=== PATIENT | male | born 1940 | race Caucasian/White ===

== ENCOUNTER → 2024-10-23 10:29 | Outpatient (REF) | payer MEDICARE, BC, SELFPAY ==
[2024-10-23 11:25] LABS: Hematocrit 41.1 % (39.0-52.0); Hemoglobin 13.9 g/dL (13.0-18.0); Mean Corp Hgb Conc. 33.8 g/dL (33.0-37.0); Mean Corpuscular Hgb 36.2 pg (27.0-31.0); Platelet Count 95 10^3/uL (130-400); Red Blood Cell Count 3.84 10^6/uL (4.70-6.10); Red Cell Dist. Width 13.6 % (11.5-14.5)
== END ==
LOC: SDSPAT 10:29
PROVIDERS: ATTENDING PHYSICIAN Orthopaedic Surgery Hand Surgery; FAMILY PHYSICIAN Family Medicine
DX: Z01.818 Encounter for other preprocedural examination (principal)
CPT/HCPCS: 36415; 85027; 93005

== ENCOUNTER 2024-10-25 06:14 | Day surgery (SDC) | payer MEDICARE, BC, SELFPAY ==
[2024-10-23 12:24] VITALS: BMI 21.3
--- NOTE | 2024-10-23 12:44 | PTCARENOTE ---
Abnormal Platelets of 95 and EKG on 10/23. Dr. Chin aware. NO interventions needed.
--- NOTE | 2024-10-23 12:45 | PTCARENOTE ---
Abnormal platelets of 95 on 10/23. Briana at Dr. Nash office aware.
[2024-10-25] VITALS (8 sets, daily range): BP systolic 141–183; BP diastolic 69–96; BMI 21.3
[2024-10-25] MEDS: TYLENOL 1000 MG PO (15:48)
[2024-10-25] MEDS: CELEBREX 200 MG PO (15:48)
[2024-10-25] MEDS: TYLENOL 650 MG PO (19:32)
== END 2024-10-25 19:50 | disposition home or self-care (01) ==
LOC: SDS 06:14
PROVIDERS: ATTENDING PHYSICIAN Orthopaedic Surgery Hand Surgery; FAMILY PHYSICIAN Family Medicine
DX: S82.092A Other fracture of left patella, initial encounter for closed fracture (principal); X58.XXXA Exposure to other specified factors, initial encounter; M25.762 Osteophyte, left knee; W01.0XXA Fall on same level from slipping, tripping and stumbling without subsequent striking against object, initial encounter
CPT/HCPCS: 27524; C1713; 73560; 76000